=== PATIENT | female | born 1955 | race Caucasian/White ===

== ENCOUNTER 2020-08-14 15:00 | Outpatient (CLI) | payer MEDICARE | END 2020-08-14 15:01 | disposition home or self-care (01) | LOC: CSHMAMMO 15:00 | PROVIDERS: ATTEND Family Medicine | DX: Z12.31 Encounter for screening mammogram for malignant neoplasm of breast (principal) | CPT/HCPCS: 77063; 77067 ==

== ENCOUNTER 2021-04-02 15:30 | Outpatient (CLI) | payer MEDICARE | END 2021-04-02 15:31 | disposition home or self-care (01) | LOC: CSHMRI 15:30 | PROVIDERS: ATTEND Specialist | DX: M54.16 Radiculopathy, lumbar region (principal); M47.816 Spondylosis without myelopathy or radiculopathy, lumbar region | CPT/HCPCS: 72148 ==

== ENCOUNTER 2021-10-08 08:52 | Outpatient (CLI) | payer MEDICARE | END 2021-10-08 08:53 | disposition home or self-care (01) | LOC: CSHMRI 08:52 | PROVIDERS: ATTEND Specialist | DX: M54.12 Radiculopathy, cervical region (principal); M50.322 Other cervical disc degeneration at C5-C6 level; M48.02 Spinal stenosis, cervical region | CPT/HCPCS: 72141 ==

== ENCOUNTER 2023-09-17 08:35 | Outpatient (CLI) | payer MEDICARE | END 2023-09-17 08:36 | disposition home or self-care (01) | LOC: CSHMRI 08:35 | PROVIDERS: ATTEND Nurse Practitioner Family | DX: M47.26 Other spondylosis with radiculopathy, lumbar region (principal); M48.061 Spinal stenosis, lumbar region without neurogenic claudication; M48.07 Spinal stenosis, lumbosacral region; M43.8X6 Other specified deforming dorsopathies, lumbar region | CPT/HCPCS: 72110; 72148 ==

== ENCOUNTER 2024-04-18 08:15 | Inpatient (IN) | payer MEDICARE ==
[2024-04-18 09:11] LABS: #Basophils 0.04 10x3/uL (0.0-0.2); #Eosinophils 0.05 10x3/uL (0.0-0.5); #Monocytes 1.87 10x3/uL (0.0-1.1); #Neutrophils 17.62 10x3/uL (1.5-8.4); %Basophils 0.2 % (0.0-2.0); %Eosinophils 0.2 % (0.0-6.0); %Monocytes 8.9 % (0.0-10.0); %Neutrophils 84.2 % (40.0-75.0); Hematocrit 40.7 % (34.9-44.5); Hemoglobin 13.5 g/dL (12.0-15.5); Mean Corpuscular HGB CONC 33.2 g/dL (32.0-36.0); Mean Corpuscular Hemoglobin 31.3 pg (27.0-33.0); Mean Corpuscular Volume 94.4 fL (81.6-98.3); Mean Platelet Volume 8.6 fL (7.4-10.4); Platelet Count 402 10x3/uL (150-450); RBC Distribution Width 13.4 % (11.5-14.5); Red Blood Cell (RBC) Count 4.31 10x6/uL (3.90-5.03); White Blood Cell (WBC) Count 20.9 10x3/uL (3.5-10.5)
[2024-04-18 09:12] LABS: ALT (SGPT) 12 U/L (8-55); AST (SGOT) 14 U/L (5-34); Albumin 3.8 g/dL (3.4-4.8); Alkaline Phosphatase 69 U/L (40-110); Anion Gap 18 mmol/L (10-20); BUN (Urea Nitrogen) 13 mg/dL (9.8-20.1); Bilirubin, Total 0.5 mg/dL (0.2-1.2); Calc. Creatinine Clearance 0 mL/min (70-130); Calcium 9.9 mg/dL (7.8-10.44); Carbon Dioxide 23 mmol/L (23-31); Chloride 98 mmol/L (98-107); Estimated GFR 76; Globulin 3.5 g/dL (2.4-3.5); Glucose 116 mg/dL (80-115); Lipase 30 U/L (8-78); Potassium 4.7 mmol/L (3.5-5.1); Protein, Total 7.3 g/dL (5.8-8.1); Sodium 134 mmol/L (136-145)
[2024-04-18 09:14] LABS: Troponin I Less than 0.010 ng/mL (< 0.028)
[2024-04-18] MEDS ORDERED: Piperacillin/Tazobactam 4.5 GM VIAL ONE (11:01)
[2024-04-18] MEDS ORDERED: Ondansetron PF 4 MG/2 ML Vial ONE (11:01)
[2024-04-18] MEDS ORDERED: Ondansetron PF 4 MG/2 ML Vial IVP PRN (14:18)
[2024-04-18] MEDS ORDERED: Bisacodyl 10 MG SUPP PR PRN (14:19)
[2024-04-18 15:08] VITALS: BMI 19.7
[2024-04-18] MEDS: Sodium Chloride 0.9% 1,000 ML IV SCH (16:43)
[2024-04-18] MEDS: Morphine 2 MG/ML VIAL SLOW IVP PRN (16:52)
[2024-04-18] MEDS ORDERED: Ipratropium/Albuterol 3 ML NEB NEB PRN (17:39)
[2024-04-18] MEDS: Ciprofloxacin Lactate/D5W 400 MG in Premix 1 BAG IVPB SCH (20:30)
[2024-04-18] MEDS: FLU (Fluad Triv) TS24-25 (65UP)/MF59C/PF 45 MCG/0.5 ML Syringe IM ONE (20:30)
[2024-04-18] MEDS: metroNIDAZOLE 500 MG in Premix 1 BAG IVPB SCH (22:58)
[2024-04-18] MEDS: traZODone HCl 50 MG TAB PO SCH (23:54)
[2024-04-19 03:45] LABS: #Basophils 0.05 10x3/uL (0.0-0.2); #Eosinophils 0.26 10x3/uL (0.0-0.5); #Monocytes 1.58 10x3/uL (0.0-1.1); #Neutrophils 7.33 10x3/uL (1.5-8.4); %Basophils 0.4 % (0.0-2.0); %Eosinophils 2.3 % (0.0-6.0); %Lymphocytes 18.1 % (18.0-47.0); %Neutrophils 64.9 % (40.0-75.0); Hematocrit 34.9 % (34.9-44.5); Hemoglobin 11.7 g/dL (12.0-15.5); Mean Corpuscular HGB CONC 33.5 g/dL (32.0-36.0); Mean Corpuscular Hemoglobin 32.4 pg (27.0-33.0); Mean Corpuscular Volume 96.7 fL (81.6-98.3); Mean Platelet Volume 8.9 fL (7.4-10.4); Platelet Count 360 10x3/uL (150-450); RBC Distribution Width 13.5 % (11.5-14.5); Red Blood Cell (RBC) Count 3.61 10x6/uL (3.90-5.03); White Blood Cell (WBC) Count 11.3 10x3/uL (3.5-10.5)
[2024-04-19 03:54] LABS: Anion Gap 13 mmol/L (10-20); BUN (Urea Nitrogen) 9 mg/dL (9.8-20.1); Calc. Creatinine Clearance 80 mL/min (70-130); Calcium 8.5 mg/dL (7.8-10.44); Carbon Dioxide 21 mmol/L (23-31); Chloride 110 mmol/L (98-107); Estimated GFR 98; Glucose 72 mg/dL (80-115); Sodium 140 mmol/L (136-145)
[2024-04-19] MEDS: Levothyroxine Sodium 125 MCG TAB PO SCH (06:19)
[2024-04-19] MEDS: Levothyroxine Sodium 50 MCG TAB PO SCH (06:19)
[2024-04-19] MEDS: Enoxaparin 30 MG (0.3 mL) SYRINGE SC SCH (09:34)
[2024-04-19] MEDS: Pantoprazole DR 40 MG TAB PO SCH (09:59)
[2024-04-19] MEDS: Aspirin 81 mg Enteric Coated Tablet PO SCH (09:59)
[2024-04-19] MEDS: Enoxaparin 40 MG (0.4 mL) SYRINGE SC SCH (10:00)
[2024-04-19] MEDS ORDERED: Sodium Chloride 0.9% 1,000 ML IV SCH (10:47)
[2024-04-19 12:00] VITALS: BP 147/68; TEMP 97.8
[2024-04-19] MEDS ORDERED: Mometasone 200 MCG/Formoterol 5 MCG 120 PUFF INHALER INH SCH (18:30)
[2024-04-19] MEDS ORDERED: traZODone HCl 50 MG TAB PO SCH (21:00)
[2024-04-19] MEDS ORDERED: Ranolazine ER 500 MG TAB PO SCH (21:00)
[2024-04-20] MEDS ORDERED: Enoxaparin 40 MG (0.4 mL) SYRINGE SC SCH (09:00)
== END 2024-04-19 14:00 | disposition home or self-care (01) | DRG 390 ==
LOC: CSHERS 08:15 → CSHTELE 13:35 → OBSVTOIN 04-19 10:48
PROVIDERS: ADMIT Internal Medicine; ATTEND Internal Medicine
DX: K56.609 Unspecified intestinal obstruction, unspecified as to partial versus complete obstruction (principal); F17.200 Nicotine dependence, unspecified, uncomplicated; J44.9 Chronic obstructive pulmonary disease, unspecified; I10 Essential (primary) hypertension; G89.29 Other chronic pain; K52.9 Noninfective gastroenteritis and colitis, unspecified; M19.90 Unspecified osteoarthritis, unspecified site; E78.00 Pure hypercholesterolemia, unspecified; G43.909 Migraine, unspecified, not intractable, without status migrainosus; Z88.5 Allergy status to narcotic agent; Z91.013 Allergy to seafood; Z88.2 Allergy status to sulfonamides; Z90.49 Acquired absence of other specified parts of digestive tract; Z90.710 Acquired absence of both cervix and uterus; Z86.73 Personal history of transient ischemic attack (TIA), and cerebral infarction without residual deficits; Z79.899 Other long term (current) drug therapy
CPT/HCPCS: 36415; 71045; 74177; 74250; 80048; 80053; 83605; 83690; 84484; 85025; 87040; 93005; 96372; 96375; 96376; G0378; J0744; J1650; J2272; J2405; J2543; J7030

== ENCOUNTER 2025-01-12 13:30 | Outpatient (CLI) | payer MEDICARE, BC | END 2025-01-12 13:31 | disposition home or self-care (01) | LOC: CSHCT 13:30 | PROVIDERS: ATTEND Family Medicine | DX: Z12.2 Encounter for screening for malignant neoplasm of respiratory organs (principal); F17.210 Nicotine dependence, cigarettes, uncomplicated | CPT/HCPCS: 71271 ==